=== PATIENT | male | born 2000 | race Two or more races ===

== ENCOUNTER 2024-12-02 16:42 | Emergency (ER) | payer BC, MEDICAID, SELFPAY ==
[2024-12-02 16:43] VITALS: BMI 30.4
[2024-12-02 17:54] VITALS: BP 138/78; PULSE 58; RESP 18; TEMP 36.8; O2SAT 98; BMI 31.9
--- NOTE | 2024-12-02 17:59 | XR_ITS ---
Examination: CT brain head without contrast. 2-D sagittal coronal reconstructions Date and time of exam:December 02, 2024, 1850 hrs., Comparison January 18, 2023 Indications: Headache dizziness today CTDI: vol (mGy):51.3 DLP: (mGycm):The Technique: Multiple CT axial sections of the brain have been obtained, 5 mm slice thickness. Contrast has not been administered. 2-D sagittal, coronal reconstructions have been obtained Low dose protocols were performed. One or more of the following dose reduction techniques were used; automated exposure control, adjustment of the mA and/or KV according to patient size, use of iterative reconstruction technique. Findings: No significant ventricular enlargement. Intra-axial or extra-axial hemorrhage density is not seen. No mass effect or midline shift Basal cisterns are not remarkable. Fourth ventricle is midline. Cranial vault intact. Impression: Negative for acute hemorrhage, mass effect or midline shift Advise clinical correlation and follow-up accordingly
--- NOTE | 2024-12-02 18:00 | PD.EDDIZZY ---
ED Dizzyness E/HPI General Chief Complaint: Dizziness Stated Complaint: DIZZINESS SINCE YESTERDAY WITH HIVES WITH N/V Time Seen by Provider: 12/02/24 17:51 Arrival date/time: 12/02/24 16:42 RME / HPI RME / HPI Narrative: 24-year-old male patient came in for evaluation regarding dizziness. Patient symptoms started earlier today as dizziness, associated with erythematous rashes on the face, severity moderate. Patient told me that he probably ate spoiled crab last . Patient denies any shortness of breath denies any chest pain abdominal pain or other complaints no medications taken prior to arrival Related Data Previous Rx's ?Medication ?Instructions ?Recorded diphenhydramine HCl 25 mg capsule 25 mg PO TID PRN allergic reaction 12/02/24 (Benadryl) #30 caps prednisone 50 mg tablet 50 mg PO QDAY #7 tabs 12/02/24 Allergies Allergy/AdvReac Type Severity Reaction Status Date / Time No Known Allergies Allergy Verified 12/02/24 16:46 Review of Systems Review of Systems Narrative Review of Systems: Review of system reviewed and within normal limits except mentioned in HPI ED Exam Narrative Physical exam: VITAL SIGNS: Reviewed. GENERAL APPEARANCE: Alert and interactive, follows commands, no acute distress, HEAD AND FACE: Non-traumatic. Erythematous rashes noted in the face ENT: PERRL, pink conjunctivitis, eyelid no trauma, Mucous membrane moist. NECK: Supple, nontender, no nuchal rigidity. CHEST: No tenderness, no crepitus, no paradoxical movement, no retractions. LUNGS: Clear, well ventilated, symmetric, no rales, no wheezing, no ronchi, no stridor, good breath sounds bilaterally. HEART: Regular rate, regular rhythm, no murmur, no gallops. ABDOMEN: Soft, positive bowel sounds, nondistended, no guarding, nontender, no rebound, no masses, RECTAL: Deferred. GENITAL: Deferred. NEUROLOGICAL: Gross motor function intact sensory function intact, Appropriate for age. MUSCULOSKELETAL: low back nontender, full range of motion. EXTREMITIES: Nontender, full range of motion. SKIN: Color pink, dry, no rash, no lacerations, no abrasions, no contusions. LYMPHATICS: Deferred. Course Quality Measures none Orders Category Date Time Status CT head/brain wo con Stat Exams 12/02/24 17:59 Completed CBC [CBC] Stat Lab 12/02/24 18:15 Completed CMP [Comprehensive Metabolic Panel] Stat Lab 12/02/24 18:15 Completed PTT [Partial Thromboplastin Time] Stat Lab 12/02/24 18:15 Completed UA, C/S IF [Urinalysis, C/S if Indicated] Stat Lab 12/02/24 20:13 Completed Dexamethasone Inj [Decadron Inj] Med 12/02/24 18:15 Discontinued 10 mg IV X1 ONE Dexamethasone Inj [Decadron Inj] 10 mg Med 12/02/24 17:59 Discontinued Sodium Chloride 0.9% [Ns] 100 ml IV X1 DiphenhydrAMINE INJ [Benadryl Inj] Med 12/02/24 17:59 Discontinued 50 mg IVP X1 ONE Famotidine Inj [Pepcid Inj] Med 12/02/24 17:59 Discontinued 20 mg IVP X1 ONE Ringers Lactated 1000 ml [Lactated Ringers] 1,000 ml Med 12/02/24 18:00 Discontinued IV 999 mls/hr Vital Signs Vital signs: Vital Signs Temperature 98.2 F 12/02/24 17:54 Pulse Rate 58 L 12/02/24 17:54 Respiratory Rate 18 12/02/24 17:54 Blood Pressure 138/78 H 12/02/24 17:54 Pulse Oximetry (%) 98 12/02/24 17:54 Oxygen Delivery Method Room Air 12/02/24 17:54 Dizziness MDM Narrative MDM Narrative:: 24-year-old male patient came in for evaluation regarding dizziness. Patient symptoms started earlier today as dizziness, associated with erythematous rashes on the face, severity moderate. Patient told me that he probably ate spoiled crab last . Patient denies any shortness of breath denies any chest pain abdominal pain or other complaints no medications taken prior to arrival Patient's workup today including CT scan of the head came back unremarkable. Patient was given IV fluids, Decadron, Benadryl, Pepcid and Benadryl with complete resolution of symptoms. Stable for discharge home. Patient data External records reviewed:: None Clinical information provided by:: patient Social determinants that could affect healthcare access:: none Patient has the following chronic illnesses:: None How is presenting disease/condition affected by chronic disease/condition?: no chronic disease Evaluation data The following diagnostics were reviewed and interpreted by me:: lab results and radiology exam(s) Lab and/or radiology exams considered but not ordered:: None Interpretation Summary: See results [facility] Medications / Prescriptions Medications or Prescriptions considered but not ordered:: None Medication administrations:: Medication Administration History Discontinued Medications Dexamethasone Sodium Phosphate (Dexamethasone Sod Phos Inj 10 Mg/Ml Vial) 10 mg IV X1 ONE Stop: 12/02/24 18:16 Last Admin: 12/02/24 18:17 Dose: 10 mg Documented By: YENNIFER Diphenhydramine HCl (Diphenhydramine Inj 50 Mg/Ml Vial) 50 mg IVP X1 ONE Stop: 12/02/24 18:00 Last Admin: 12/02/24 18:17 Dose: 50 mg Documented By: YENNIFER Famotidine (Famotidine Inj 10 Mg/Ml Vial 2 Ml) 20 mg IVP X1 ONE Stop: 12/02/24 18:00 Last Admin: 12/02/24 18:17 Dose: 20 mg Documented By: YENNIFER Lactated Ringer's (Lactated Ringers) 1,000 mls @ 999 mls/hr IV .Q1H1M ONE Stop: 12/02/24 19:00 Last Infusion: 12/02/24 19:17 Dose: Infused Documented By: Admin: 12/02/24 18:16 Dose: 999 mls/hr Documented By: YENNIFER Dexamethasone Sodium Phosphate (10 mg/ Sodium Chloride) 101 mls @ 101 mls/hr IV X1 ONE Stop: 12/02/24 18:00 Last Admin: 12/02/24 18:21 Dose: Not Given Documented By: YENNIFER Non-Admin Reason: Cancelled by Provider See [facility] Consultations Consultation(s) initiated? (list below): No Diagnosis Dizziness Differential Diagnosis: adverse reaction to drug and other (Allergic rash) Most likely diagnosis given after review of the tests above:: Allergic rash Admission Indicated Admission indicated?: not indicated Explain why admission is indicated or not indicated:: Stable Admission Request Was there a request for admission?: No Disposition Plan Disposition Plan: Discharge Discharge Attestation Discharge Attestation: The patient and all family members were given an opportunity to ask questions and understood the discharge instructions. Discharge instructions specifically effects, indications for sooner follow up or return to the emergency department, and the expected course of current diagnosis. Patient condition: Stable Discharge Plan Plan Patient Disposition: HOME (Self Care) Discharge Disposition comment: Stable Prescriptions/Referrals Prescriptions/Med Rec: New prednisone 50 mg tablet 50 mg PO QDAY Qty: 7 0RF diphenhydramine HCl [Benadryl] 25 mg capsule 25 mg PO TID PRN (Reason: allergic reaction) Qty: 30 0RF Referrals: No Primary/Family,Physician [Primary Care Provider] - In 1 week Problem List Clinical Impression: Rash due to allergy Patient/Caregiver Discharge Instructions Discharge Activity: activity as tolerated Education Materials: First Aid: Allergic Reactions Additional Instructions: Thank you for the opportunity for serving you today. You are stable for discharged . You are advised to: Follow-up with your PCP in 1 to 2 days Return to ED for worsening of symptoms Increase oral fluids Take medication as prescribed Print Language: Estonian Stand Alone Forms: [employer] Award Info., Patient Portal Info Letter PA/GENERAL EDUCATION PROFESSOR Supervising Physician MICHAEL/JOSEPH Supervising Physician: MD Judy
[2024-12-02] MEDS: RINGERS LACTATED 1000 ML 1,000 ML 999 ML IV (18:16)
[2024-12-02] MEDS: DEXAMETHASONE SOD PHOS INJ 10 MG/ML VIAL IV (18:17)
[2024-12-02] MEDS: FAMOTIDINE INJ 10 MG/ML VIAL 2 ML 20 MG IVP (18:17)
[2024-12-02 18:32] LABS: Basophils # (Auto) 0.0 Thou/mm3 (0.0-0.2); Basophils % (Auto) 0 % (0-2.5); Eosinophils # (Auto) 0.2 Thou/mm3 (0.0-0.5); Eosinophils % (Auto) 2 % (0-10); Hematocrit 42.5 % (41.0-53.0); Hemoglobin 14.7 g/dL (13.5-16.0); Immature Granulocytes Auto 0.03 Thou/mm3 (0.00-0.00); Lymphocytes # (Auto) 2.2 Thou/mm3 (1.0-4.8); Lymphocytes % (Auto) 24 % (10-50); Mean Corpuscular HGB Conc 34.6 g/dl (31.0-37.0); Mean Corpuscular Hemoglobin 29.6 pg (25.0-35.0); Mean Corpuscular Volume 86 fL (80-100); Monocytes # (Auto) 0.6 Thou/mm3 (0.0-0.8); Monocytes % (Auto) 7 % (0-12); Neutrophils # (Auto) 5.9 Thou/mm3 (1.8-7.7); Neutrophils % (Auto) 66 % (37-80); Nucleated Red Blood Cell # 0.00 Thou/mm3 (0.00-0.00); Nucleated Red Blood Cell % 0 /100 WBC (0); Platelet Count 303 Thou/mm3 (140-440); RDW Standard Deviation 40.0 fL (35.1-43.9); Red Blood Count 4.96 Miln/mm3 (4.50-5.90); White Blood Count 8.9 Thou/mm3 (3.8-10.6)
[2024-12-02 19:00] LABS: Partial Thromboplastin Time 27.3 Seconds (22.0-36.0)
[2024-12-02 19:04] LABS: Alanine Aminotransferase 50 U/L (10-49); Albumin, Serum 4.9 gm/dL (3.5-5.0); Albumin/Globulin Ratio 2.0 (1.2-2.2); Alkaline Phosphatase 88 U/L (46-116); Anion Gap 10 (7-16); Aspartate Amino Transferase 23 U/L (0-34); BUN/Creatinine Ratio 12 Ratio (12-20); Bilirubin,Total 0.4 mg/dL (0.3-1.2); Blood Urea Nitrogen 11 mg/dL (9-23); Calcium 9.9 mg/dL (8.3-10.6); Calcium (Corrected) 9.9 mg/dL (8.5-10.1); Carbon Dioxide 26.1 mMol/L (20.0-31.0); Chloride 107 mMol/L (98-107); Creatinine (Component) 0.9 mg/dL (0.6-1.3); Estimated Creatinine Clearance 142.9 mL/min (>60); Globulin 2.5 gm/dL (2.3-3.5); Glucose 102 mg/dL (74-106); Osmolality,Calculated 284 (275-295); Potassium 3.7 mMol/L (3.4-5.1); Sodium 143 mMol/L (136-145); Total Protein 7.4 gm/dL (5.7-8.2); eGFR > 60 See Note
[2024-12-02 20:23] LABS: Collection Type, Urine Clean Catch
[2024-12-02 20:30] LABS: Bilirubin,Urine Negative (Negative); Blood,Urine Negative (Negative); Clarity,Urine Clear (Clear/Hazy); Color,Urine Lt-Yellow (Lt Yel-Yel); Culture Indicated,Urine Not Indicated; Glucose, Urine Negative (Negative); Ketones,Urine Negative (Negative); Leukocyte Esterase,Urine Negative (Negative); Nitrite,Urine Negative (Negative); PH,Urine 6.0 (5.0-7.0); Protein,Urine Negative (Neg - Trace); RBC,Urine 1 /hpf (0-3); Specific Gravity,Urine 1.027 (1.001-1.035); Squamous Epithelial Cell,Urine 1 /hpf (0-5); Urobilinogen,Urine Negative mg/dL (0.0-1.0); WBC,Urine 2 /hpf (0-5)
== END 2024-12-02 21:08 | disposition home or self-care (01) ==
PROVIDERS: Nurse Practitioner Family; Emergency Provider Emergency Medicine
DX: T78.40XA Allergy, unspecified, initial encounter (principal); R42 Dizziness and giddiness; X58.XXXA Exposure to other specified factors, initial encounter
CPT/HCPCS: 36415; 70450; 80053; 81001; 85025; 85730; 96361; 96374; 96375; 99283; J1100; J1200; J3490; J7120